=== PATIENT | female | born 1985 | race Two or more races ===

== ENCOUNTER 2016-09-18 12:13 | Day surgery (SDC) | payer MEDICAID ==
[~2016-09-18 12:13] MED LIST: NS 1,000 ML IV SCH
[2016-09-18] MEDS ORDERED: fentaNYL 100 MCG/2 ML INJ ONE (13:22)
[2016-09-18] MEDS ORDERED: MIDAZOLAM 2 MG/2 ML VIAL ONE (13:22)
[2016-09-18] MEDS ORDERED: IOPAMIDOL (ISOVUE-M 300) 15 ML VIAL ONE (14:43)
[2016-09-18] MEDS ORDERED: TRIAMCINOLONE ACETONIDE 200 MG/5 ML MDV IM ONE (14:44)
== END 2016-09-18 14:45 | disposition home or self-care (01) ==
LOC: FIMAGING 12:13
PROVIDERS: ATTEND Radiology Diagnostic Radiology
PROC: 3E0S3BZ Introduction of Anesthetic Agent into Epidural Space, Percutaneous Approach (ICD-10-PCS; principal; 2016-09-18 14:15)
PROC: 3E0S33Z Introduction of Anti-inflammatory into Epidural Space, Percutaneous Approach (ICD-10-PCS; principal; 2016-09-18 14:15)
DX: M51.26 Other intervertebral disc displacement, lumbar region (principal)
CPT/HCPCS: J2250; J3010; J3301; Q9967

== ENCOUNTER 2016-12-04 08:23 | Emergency (ER) | payer MEDICAID ==
[2016-12-04 08:28] VITALS: BP 109/78; PULSE 87; RESP 18; TEMP 98.2; O2SAT 96
--- NOTE | 2016-12-04 09:09 | EDPHY ---
H & P Time Seen by Provider: 12/04/16 09:01 HPI/ROS: Chief complaint. Back pain HPI. 31-year-old female presents with low back pain. She has a history of chronic low back pain and apparently on MRI has known disc disease. She had an epidural injection September 2016 which helped for about a month and now hurts again. The plan is 1 more epidural injection and if not successful to consider surgery. 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 Pain is in the left low back. No radiation. Hurts to move. No leg weakness or change in sensation. No bowel or bladder symptoms. No fever. ROS Constitutional. no fever/chills, no weakness Eyes. no problems with vision ENT. no sore throat, no nasal drainage Cardiovascular. no chest pain Respiratory. no shortness of breath, no cough Abdominal. no abdominal pain, no nausea/vomiting, no diarrhea . no problems urinating MS. Low back pain Skin. no rash Lymph. no swollen glands Neuro. no headache, no dizziness, no difficulty walking or with speech Past Medical/Surgical History: Asthma and chronic low back pain Social History: , nonsmoker, no alcohol Smoking Status: Never smoked Physical Exam: General Appearance: Alert well-developed female mild distress vital signs are stable Eyes: Pupils equal and round no pallor or injection. ENT, Mouth: Mucous membranes are moist. Respiratory: There are no retractions, lungs are clear to auscultation. Cardiovascular: Regular rate and rhythm. Gastrointestinal: Abdomen is soft and nontender, no masses, bowel sounds normal. Neurological: Awake and alert, sensory and motor exams grossly normal. Straight leg raising negative at 30 degrees bilaterally, deep tendon reflexes are symmetrical. Sensation is normal. Motor strength and great toe strength is normal Skin: Warm and dry, no rashes. Musculoskeletal: Neck is supple nontender. Tenderness to the left side of mid lumbar spine. No tenderness over the spine Extremities symmetrical, full range of motion. Psychiatric: Patient is oriented X 3, there is no agitation. Constitutional: Initial Vital Signs Temperature (C) 36.8 C 12/04/16 08:24 Heart Rate 87 12/04/16 08:24 Respiratory Rate 18 12/04/16 08:24 Blood Pressure 109/78 12/04/16 08:24 O2 Sat (%) 96 12/04/16 08:24 O2 Delivery Mode Room Air Allergies/Adverse Reactions: No Known Allergies Allergy (Verified 12/04/16 08:24) Home Medications: Medication Instructions Recorded Control 09/13/16 oxyCODONE/APAP 5/325 [Percocet 1 tab PO Q4-6PRN PRN #14 tab 12/04/16 5/325] predniSONE 40 mg PO DAILY #8 tablet 12/04/16 Medical Decision Making ED Course/Re-evaluation: Patient and I discussed treatment plan including criteria for return and importance of follow-up and further evaluation. She remained stable. She expresses understanding and agreement Differential Diagnosis: Low back pain without evidence for cord entrapment or cauda equina syndrome. No bowel or bladder symptoms. Exacerbation of chronic symptoms. Does not meet criteria for emergent MRI Departure - Departure Disposition: Home, Routine, Self-Care Clinical Impression: Low back pain Qualifiers: Chronicity: acute Back pain laterality: left Sciatica presence: without sciatica Qualified Code(s): M54.5 - Low back pain Condition: Good Instructions: Low Back Strain (ED) Additional Instructions: Easy activity the next 2-3 days. Percocet for pain. Prednisone to help with inflammation. When the prednisone is done you may begin to take ibuprofen again. Return for bowel or bladder symptoms, leg weakness. Recheck in 2-3 days if improving Stand Alone Forms: Work Excuse Prescriptions: oxyCODONE/APAP 5/325 [Percocet 5/325] 1 tab PO Q4-6PRN PRN #14 tab PRN Reason: Pain, Moderate predniSONE 40 mg PO DAILY #8 tablet
== END 2016-12-04 09:48 | disposition home or self-care (01) ==
DX: M54.5 Low back pain (principal); J45.909 Unspecified asthma, uncomplicated

== ENCOUNTER 2016-12-17 12:35 | Emergency (ER) | payer MEDICAID ==
[2016-12-17 12:51] VITALS: RESP 16
--- NOTE | 2016-12-17 13:42 | EDPHY ---
H & P Stated Complaint: BACK AND NECK PAIN/SEEN LAST WEEK FOR SAME/NOW WITH BREAST PAIN ALSO Time Seen by Provider: 12/17/16 13:38 HPI/ROS: CHIEF COMPLAINT: Back pain, breast pain. HISTORY OF PRESENT ILLNESS: This patient is a 31 year old female complaining of breast tenderness onset this morning and back pain and stiffness worsening over the last couple days. She has had 10 months of lower back pain, but developed upper back pain and stiffness more recently and was evaluated here last week. Her left lower back hurts the most, but she feels stiff from her neck to her bottom and her pain is increased with movement. She has had an MRI which revealed a herniated disc. She was treated with a spinal injection which helped for a few weeks. She has an appointment with her primary care provider, Deneen Bradley. She did not take the narcotic medication prescribed 12/04 as it made her vomit and feel very drowsy. She generally takes Ibuprofen for pain relief. This morning, her breasts began to hurt as if she is , but she has had her period and denies knowledge of . She denies any abnormal movement or heavy lifting. No abdominal pain, fever, or other associated symptoms. REVIEW OF SYSTEMS: A 10 point review of systems was performed and is negative with the exception of the elements mentioned in the history of present illness. - Personal History LMP (Females 10-55): 22-28 Days Ago Current Tetanus/Diphtheria Vaccine: Yes - Medical/Surgical History PMH: Asthma, chronic back pain. Hx Asthma: Yes Hx Chronic Respiratory Disease: No Hx Diabetes: No Hx Cardiac Disease: No Hx Renal Disease: No Hx Cirrhosis: No Hx Alcoholism: No Hx HIV/AIDS: No Hx Splenectomy or Spleen Trauma: No Other PMH: asthma. chronic back pain - Social History Smoking Status: Never smoked Additional Social History: , at bedside. Lives in [place]. - Physical Exam Exam: General Appearance: Alert, no distress Eyes: Pupils equal and round, no conjunctival pallor or injection ENT, Mouth: Mucous membranes moist Neck: Normal inspection Respiratory: Lungs are clear to auscultation Cardiovascular: Regular rate and rhythm Back: Paraspinous muscle tenderness over entire lumbar and thoracic spine. Gastrointestinal: Abdomen is soft and non- tender Neurological: A&O, nonfocal, normal gait Skin: Warm and dry, no rash Extremities: Nontender, no pedal edema Psychiatric: Mood and affect normal Constitutional: Initial Vital Signs Temperature (C) 36.8 C 12/17/16 12:47 Heart Rate 92 12/17/16 12:47 Respiratory Rate 16 12/17/16 12:47 Blood Pressure 132/73 H 12/17/16 12:47 O2 Sat (%) 97 12/17/16 12:47 O2 Delivery Mode Room Air Allergies/Adverse Reactions: No Known Allergies Allergy (Verified 12/17/16 12:47) Home Medications: Medication Instructions Recorded Control 09/13/16 oxyCODONE/APAP 5/325 [Percocet 1 tab PO Q4-6PRN PRN #14 tab 12/04/16 5/325] predniSONE 40 mg PO DAILY #8 tablet 12/04/16 Hydrocodone/APAP 5/325 [[place] 1 - 2 tab PO Q4H PRN #15 tab 12/17/16 5/325 (*)] Medical Decision Making ED Course/Re-evaluation: 31 year old female presents with back and breast pain. Physical exam reveals paraspinous tenderness over the thoracic and lumbar areas. No evidence of infection noted on breast exam. Plan for CG. Urine test negative. Plan to discharge home in good condition. She will follow up with her primary care provider as scheduled this . Prescription for [place] given for pain relief. Follow up and return precautions discussed. The patient is comfortable with this plan. Departure - Departure Disposition: Home, Routine, Self-Care Clinical Impression: Breast tenderness in female Back pain Qualifiers: Back pain location: back pain in unspecified location Chronicity: chronic Back pain laterality: bilateral Qualified Code(s): M54.9 - Dorsalgia, unspecified; G89.29 - Other chronic pain Condition: Good Instructions: Back Pain (ED), Lower Back Exercises (ED) Additional Instructions: 1. Follow up with your primary care provider as scheduled on . 2. Take 600mg Ibuprofen every 6-8 hours with food as needed for pain. You may also take [place] as prescribed as needed for severe pain. Do not take Tylenol while you are taking [place] as both of these medications contain acetaminophen. You may try using a heating pad. 3. Return to the emergency department for severe pain, fever, numbness, difficulty walking, change in location or nature of pain or other concerns. Referrals: Deneen Bradley PA [Primary Care Provider] - As per Instructions Prescriptions: Hydrocodone/APAP 5/325 [[place] 5/325 (*)] 1 - 2 tab PO Q4H PRN #15 tab PRN Reason: Pain, Moderate Report Scribed for: Gayle Gamez Report Scribed by: Raisa Jensen Date of Report: 12/17/16 Time of Report: 13:42 Physician Review and Approval Statement: 12/17/16 13:42 Portions of this note were transcribed by a medical billing representative. I personally performed a history, physical exam, medical decision making, and confirmed accuracy of information the transcribed note.
[2016-12-17 14:32] VITALS: BP 113/71; PULSE 78; TEMP 98.4; O2SAT 98
== END 2016-12-17 14:29 | disposition home or self-care (01) ==
DX: M54.9 Dorsalgia, unspecified (principal); G89.29 Other chronic pain; N64.4 Mastodynia; J45.909 Unspecified asthma, uncomplicated